=== PATIENT | male | born 1970 | race Two or more races ===

== ENCOUNTER 2020-06-21 11:17 | Inpatient (IN) | payer OTHER ==
[2020-06-21] VITALS (16 sets, daily range): BP systolic 124–162; BP diastolic 84–106
[~2020-06-21] VITALS: Ht 170.2 cm; Wt 77.1 kg
--- NOTE | 2020-06-21 10:54 | Immediate Post-Op Evaluation ---
Immediate Post-Op Evalulation Immediate Post-Op Evalulation Procedure: L5-S1 Microdiscectomy Date of Evaluation: Jun 21, 2020 Time of Evaluation: 14:17 IV Fluids: 700 LR Blood Products: 0 Estimated Blood Loss: 30 Urinary Output: 200 Blood Pressure Systolic: 142 Blood Pressure Diastolic: 83 Pulse Rate: 74 Respiratory Rate: 16 O2 Sat by Pulse Oximetry: 100 Temperature (Fahrenheit): 98.3 Pain Score (1-10): 2 Nausea: No Vomiting: No Complications 0 Patient Status: awake, reacts, patent, extubated, none Hydration Status: adequate Dru Grams Ancef IV Given Within 1 Hr of Incision: Yes Time Given: 12:16 Nito Hernandez MD Jun 21, 2020 10:54
[~2020-06-21 11:17] MED LIST: Acetaminophen (Non formulary) 100 ML IV ONE; Atropine Sulfate 0.4mg/ml inj IVP PRN; Bacitracin 50000 Units Vial ONE; DiphenhydrAMINE 50mg/ml Inj IVP PRN; Gelfoam Size TOPIC ONE; HYDROcodone/Acetamin 5/325 tab ORAL PRN; HYDROcodone/Acetamin 7.5/325 tab ORAL PRN; Hydromorphone 0.5mg/0.5ml inj IVP PRN; IBUPROFEN600 M1 ORAL; Ketorolac 30mg Inj IV PRN; LORazepam Inj 2mg/ml 1ml IV PRN; LR 1000ml 1,000 ML IVLG SCH; Labetalol 5mg/ml 20ml vial IV PRN; Meperidine 25mg/0.5ml Inj (FOR RIGORS ONLY) IV PRN; Metoclopramide 10mg/2ml Inj IVP PRN; Midazolam 2mg/2ml Inj IVP PRN; Ropivacaine 5mg/ml Vial 20ml INJ ONE; Thrombin 5000 units TOPIC ONE; Vancomycin 1gm vial IVPB ONE; ceFAZolin sod 2 GM in NS 55 ML IVPB ONE; fentaNYL 100 mcg/2 mL IV PRN; oxyCODONE HCL/Acetaminophen 5/325mg ORAL PRN
[2020-06-21] MEDS ORDERED: Lidocaine 1% MPF 10mg/ml 5ml ONE (11:26)
[2020-06-21] MEDS ORDERED: Sodium Chloride 10ml vial INJ ONE (11:26)
[2020-06-21] MEDS ORDERED: fentaNYL 100 mcg/2 mL IV ONE (11:28)
[2020-06-21] MEDS ORDERED: Lidocaine 1% Plain 30 ml INJ ONE (11:28)
--- NOTE | 2020-06-21 11:39 | Pre-Procedure Note/Attestation ---
Pre-Procedure Note/Attestation Complete Prior to Procedure Planned Procedure: not applicable Procedure Narrative: Bilateral hemilaminotomy foraminotomy and microdiscectomy of Lumbar 5-S1 Indications for Procedure Pre-Operative Diagnosis: L5 S1 herniation Attestation I attest that I discussed the nature of the procedure; its benefits; risks and complications; and alternatives (and the risks and benefits of such alternatives ), prior to the procedure, with the patient (or the patient's legal hospital sales representative). I attest that, if there was a reasonable possibility of needing a blood transfusion, the patient (or the patient's legal hospital sales representative) was given the [facility] standardized written summary, pursuant to the Sha Jennifer Blood Safety Act ([place] Health and Safety Code # 1645, as amended). I attest that I re-evaluated the patient just prior to the surgery and that there has been no change in the patient's H&P, except as documented below: Moo Keith MD Jun 21, 2020 11:39
--- NOTE | 2020-06-21 11:41 | Brief Operative Note ---
Immediate Post Operative Note Operative Note Chief Complaint: Low back pain and radiculopathy Pre-op Diagnosis: L5 S1 herniation Procedure: Bilateral hemilaminotomy foraminotomy and microdiscectomy of Lumbar 5-S1 Post-op Diagnosis: same as pre-op Findings: consistent w/pre-op dx studies Surgeon: Inna Oncology Registrar: Len Anesthesia: general Specimen: none Complications: none Condition: stable Fluids: IV Estimated Blood Loss: minimal Drains: none Implant(s) used?: No Moo Keith MD Jun 21, 2020 11:41
--- NOTE | 2020-06-21 11:42 | Brief Operative Note ---
Immediate Post Operative Note Operative Note Chief Complaint: Low back pain and radiculopathy Pre-op Diagnosis: L5 S1 herniation Procedure: Bilateral hemilaminotomy foraminotomy and microdiscectomy of Lumbar 5-S1 Post-op Diagnosis: same as pre-op Findings: consistent w/pre-op dx studies Surgeon: Inna Cage/Vault Supervisor: Len Anesthesia: general Specimen: none Complications: none Condition: stable Fluids: IVF Estimated Blood Loss: minimal Drains: none Implant(s) used?: No Moo Keith MD Jun 21, 2020 11:42
[2020-06-21] MEDS ORDERED: Metoclopramide 10mg/2ml Inj IVP PRN (11:45)
[2020-06-21] MEDS ORDERED: Morphine Sulfate 4mg/ml Inj (IV USE ONLY) IV PRN ×2 (11:45)
[2020-06-21] MEDS ORDERED: Chloraseptic Spray 20mL Bottle ORAL PRN (11:45)
[2020-06-21] MEDS ORDERED: Morphine Sulfate 2mg/ml Inj(IV/IM USE ONLY) IV PRN (11:45)
[2020-06-21] MEDS ORDERED: HYDROmorphone 1mg/ml Carpuject IVP PRN (11:45)
[2020-06-21] MEDS ORDERED: HYDROcodone/Acetamin 7.5/325 tab ORAL PRN ×2 (11:45)
[2020-06-21] MEDS ORDERED: HYDROcodone/Acetamin 5/325 tab ORAL PRN (11:45)
[2020-06-21] MEDS ORDERED: Naloxone 0.4mg/ml Inj IVP PRN (11:45)
[2020-06-21] MEDS ORDERED: Milk of Magnesia 30ml Ud ORAL PRN (11:45)
[2020-06-21] MEDS ORDERED: propofoL 1,000mg/100ml IV ONE (12:00)
[2020-06-21] MEDS ORDERED: LR 1000ml ONE (12:00)
[2020-06-21] MEDS ORDERED: NS Irrig 1000ml ONE (12:00)
[2020-06-21] MEDS ORDERED: Sterile Water Irrig 1000ml IRRIG ONE (12:00)
[2020-06-21] MEDS ORDERED: Rocuronium Bromide 50mg/5ml Inj IV ONE (12:00)
--- NOTE | 2020-06-21 12:00 | Anethesia Preoperative Eval ---
Anesthesia Pre-op PMH/ROS General Date of Evaluation: Jun 21, 2020 Time of Evaluation: 11:41 Anesthesiologist: David ASA Score: ASA 2 Mallampati Score Class I : Soft palate, uvula, fauces, pillars visible Class II: Soft palate, uvula, fauces visible Class III: Soft palate, base of uvula visible Class IV: Only hard plate visible Mallampati Classification: Class I Surgeon: Inna Diagnosis: Back Pain Surgical Procedure: L5-S1 Microdiscectomy Anesthesia History: none Family History: no anesthesia problems Allergies: Coded Allergies: No Known Allergies (Unverified , 06/20/20) Medications: see eMAR Patient NPO?: Yes Past Medical History Cardiovascular: Reports: HTN Anesthesia Pre-op Phys. Exam Physician Exam Last Vital Signs Date Time Temp Pulse Resp B/P (MAP) Pulse Ox O2 Delivery O2 Flow Rate FiO2 06/21/20 11:52 97.6 82 20 148/100 (116) 99 Constitutional: NAD Neurologic: CN 2-12 intact Cardiovascular: RRR Respiratory: CTA Gastrointestinal: S/NT/ND Airway Exam Mallampati Score: Class I MO: full ROM: full Teeth: intact Anesthesia Pre-op A/P Risk Assessment & Plan Assessment: ASA 2 Plan: GA, SED, GlideScope Status Change Before Surgery: No Pre-Antibiotics Dru Grams Ancef IV Given Within 1 Hr of Incision: Yes Time Given: 12:16 Nito Hernandez MD Jun 21, 2020 12:00
--- NOTE | 2020-06-21 12:00 | 48 Hour Post Anesthesia Eval ---
Post Anesthesia Evaluation Procedure: L5-S1 Microdiscectomy Date of Evaluation: Jun 21, 2020 Time of Evaluation: 16:22 Blood Pressure Systolic: 132 0: 78 Pulse Rate: 76 Respiratory Rate: 18 Temperature (Fahrenheit): 98.4 O2 Sat by Pulse Oximetry: 100 Airway: patent Nausea: No Vomiting: No Pain Intensity: 2 Hydration Status: adequate Cardiopulmonary Status: Stable Mental Status/LOC: patient returned to baseline Follow-up Care/Observations: 0 Post-Anesthesia Complications: 0 Follow-up care needed: N/A Nito Hernandez MD Jun 21, 2020 12:00
[2020-06-21] MEDS ORDERED: Ropivacaine 5mg/ml Vial 20ml INJ ONE (12:03)
[2020-06-21] MEDS ORDERED: Glycopyrrolate 0.2mg/ml 1ml Vial ONE (13:31)
[2020-06-21] MEDS ORDERED: Neostigmine 1mg/ml 10ml Inj ONE (13:31)
--- NOTE | 2020-06-21 14:25 | Diagnostic Imaging Report ---
INDICATION: Pain, intraoperative TECHNIQUE: Intraoperative imaging Fluoroscopy time: 6.2 seconds Total dose: 0.5595 mGym2 Total number of images: One COMPARISON: None FINDINGS: Intraoperative image demonstrates a surgical tool posterior what is presumably the L5-S1 disc. IMPRESSION: Intraoperative imaging, as described
--- NOTE | 2020-06-21 16:00 | NUR ---
NURSE NOTES: Patient received from PACU via bed to 314-1 on O2 3LNC, in stable condition. Respirations even/unlabored. Sleeping, easily awakens. Croatian speaking. IVF to RH, site asymptomatic. Urinal provided. Bilateral SCDs on. Neuros intact, skin warm, wiggles, no NT, pulses palpable, hand grasps/pedal pushes equal/strong 4/5. No complains of pain at this time. Lower back dressing, CDI, ice pack in place. Will call RT for IS. Oriented patient to medical equipment and call light for safety. All belongings reviewed, at bedside. Call light in reach, bed in lowest position, will continue to monitor.
--- NOTE | 2020-06-21 17:30 | Operative Note - Dictated ---
DATE OF OPERATION: 06/21/2020 SURGEON: Moo Keith MD BIOMEDICAL ENGINEERING PROFESSOR SURGEON: Lefty Harrington MD ANESTHESIA: General endotracheal anesthesia. PREOPERATIVE DIAGNOSES: 1. Intractable back pain. 2. Intractable leg pain. 3. Worsening radiculopathy. 4. Weakness. 5. Herniated nucleus pulposus, L5-S1 herniation. 6. Neural foraminal stenosis, L5-S1. POSTOPERATIVE DIAGNOSES: 1. Intractable back pain. 2. Intractable leg pain. 3. Worsening radiculopathy. 4. Weakness. 5. Herniated nucleus pulposus, L5-S1 herniation. 6. Neural foraminal stenosis, L5-S1. PROCEDURES PERFORMED: 1. Left-sided L5-S1 microdiscectomy. 2. L5-S1 hemilaminotomy, foraminotomy and medial facetectomy. 3. L5-S1 neural foraminotomy through a transpedicular intraforaminal approach. 4. Use of intraoperative microscope. 5. Supervision and interpretation of intraoperative fluoroscopy. 6. Supervision and interpretation of somatosensory-evoked potential and free running EMG monitoring. EBL: Less than 100 mL. COMPLICATIONS: None. INDICATIONS FOR THE PROCEDURE: The patient presents for intractable back pain and radiculopathy. The patient tried and failed a prolonged course of conservative management, including but not limited to chiropractic therapy, physical therapy, nonsteroidal anti-inflammatory drugs, medication, ice packs as well as epidural injection. Despite these therapies, the patient still developed recalcitrant pain and elected for definitive management in the form of left-sided L5-S1 microdiscectomy, L5-S1 hemilaminotomy, foraminotomy and medial facetectomy, L5-S1 neural foraminotomy through a transpedicular intraforaminal approach CONSENT: We had a long discussion with the patient regarding definitive surgical treatment options. The patient's MRI demonstrated herniated nucleus pulposus, L5-S1 herniation, neural foraminal stenosis, L5-S1 and as a result, I felt the patient would benefit from the discectomy as well as neural foraminotomy at this level. We had a long discussion with the patient regarding the risks, alternatives, and benefits of surgery. Our description of the risks included a discussion in person as well as a signed consent which detailed all pertinent risks and the procedure itself. Briefly, our discussion included but was not limited to infection, bleeding, pseudarthrosis, spinal cord injury, neurovascular injury, dural tear, CSF leak, neuropathy, paralysis, permanent weakness/drop foot, paresthesias blindness, palsy and weakness. The patient understood there may be a need for revision surgery or additional procedures. Approach related complications including dysphonia, dysphagia, blindness, permanent vocal cord and neural injury, hematoma, swallowing and breathing difficulty. Medical complications including liver, kidney, shock, and cardiopulmonary failure. Anesthesia complications including , swelling. Damage to the musculature, larynx (voice injury or loss),esophagus (throat), trachea, blood vessels and muscles (muscular sprain) and lungs (pneumothorax) during this surgical procedure. Injury to deeper structures may be temporary or permanent. The patient understood these and elected to proceed. A written and verbal consent was given. We discussed the pros and cons of all the alternatives. We discussed the uncertainties associated with the decision. Afterwards I assessed the patients understanding and explored their preferences. All questions were answered and no guarantees were given. Medical clearance was obtained prior to surgery INTRAOPERATIVE FINDINGS: L5-S1: At L5-S1, there was a moderate amount of lateral recess stenosis near the subarticular region at disk stenosis with and possibly due to soft tissue predominantly. After hemilaminotomy, a medial facetectomy was performed. I noted a nuclear fragment, which was torn through the posterior longitudinal ligament. The tear itself was approximately 10 degrees cephalad to caudad and is probed with Microsect curettes, which gave rise to the remainder of the nuclear fragment and the tear of the nuclear fragment itself. This was resected with a combination of arthroscopic 1.5 and 2 mm pituitaries. The disk space was irrigated. I should note that disk was soft and not desiccated. The disk appeared appropriately hydrated and not crumbled or bone on bone, which we would tend to see in patients who have had degenerative process in nature. Therefore, I felt this disk was traumatic in nature since that was desiccated, dried, or crumbled. DESCRIPTION OF PROCEDURE: Under the benefit of general endotracheal anesthesia and with the assistance of the entire operative team, the patient was moved from the rney onto the operative table in the prone position on a Hayden frame. The head was secured and positioned appropriately. Bilateral arms were secured with Gel pads and foam and all bony prominences were padded. The bilateral lower extremity SCD and PAYTON hose were placed for DVT prophylaxis. A surgical timeout was called which corroborated our planned procedure. Preoperative Antibiotics were administered within 30 minutes of the incision for prophylaxis. Decadron was given for preoperative steroids. Using lateral radiography, the operative levels were delineated. An incision was marked based on our interpretation of lateral radiography and afterwards the body was prepped and draped in the usual sterile manner. The family was notified that we were ready to commence surgery and were called in the waiting room hourly for updates An incision was based on our lateral fluoroscopic image to center the incision at the L5-S1 interspace. The wound was prepped and draped in the usual sterile fashion. Using a scalpel a midline incision was taken down through the skin and subcutaneous tissues until the overlying hemilamina of L5-S1 were visualized. Next, using meticulous hemostasis, hemilamotomies were dissected and retractors were placed. Using a [employer] dental, we confirmed placement at the L5-S1 interspace. We next turned our attention to our decompression. A standard hemilaminotomy foraminotomy medial facetectomy was performed bilaterally left and right in standard fashion using a Midas-Jair type AM8 drill bit, straight and angled curettage, and Kerrison 4 rongeurs until the lateral thecal sac margin and traversing nerve root was visualized. All remainders of the ligamentum flavum and lateral bony margins were resected in total with angled curettage and Kerrison 4 rongeurs until the lateral thecal sac margin and traversing nerve root was visualized and decompressed. We next turned our attention toward our L5-S1 microdiscectomy on the left side. A [place] 4 was used to gently mobilize the thecal sac medially and this was held retracted with a bayonetted nerve root retractor. It was at this point that we noted a large broad-based disc protrusion with encroachment dorsally on the thecal sac neural foraminal contents. A bayonet and nerve root retractor was then placed carefully to retract the thecal sac and a discectomy was performed using a combination of a long handled 15 blade scalpel, downgoing and straight pituitaries and downgoing curettage. Afterward the disc space was irrigated twice with 20 mL of antibiotic-impregnated saline. All loose and free-floating disc fragments were carefully resected with a narrow pituitary. Having been satisfied with our decompression after our discectomy of all neural elements, we next turned our attention to our neural foraminoplasty/foraminotomy. This was performed through a transpedicular intraforaminal approach using an access probe followed by a neuro check device, which confirmed ventral placement of our nerve root. Once we confirmed we were safe, we next turned our attention towards placement of our size 10 file under direct microscopic visualization and under lateral fluoroscopy. Using pre and post reciprocation imaging, we were able to visualize our direct decompression given the reciprocation allowed for re-creation of the neural foraminal arch at L5-S1. Afterwards, hemostasis was obtained with 60 mL of antibiotic-impregnated saline followed by FloSeal and Gelfoam. After sponge and needle count were found to be correct, we next turned our attention to closure. Closure consisted of 1-0 Vicryl in standard interrupted fashion. Zosyn was placed deep to the fascia and superficial to the fascia for antibiotic prophylaxis. Skin closure was performed with 2-0 Vicryl in interrupted fashion followed by a running Monocryl for the skin. Final dressings consisted of Dermabond for the superficial skin, Telfa and Tegaderm. The patient tolerated the procedure well. The patient was extubated after the conclusion of surgery without incident. We discussed the findings of the surgery with the family upon completion of the case. At this point the patient will be transferred to the spine floor for further observation. Moo Keith M.D. DR: VIMAL JOB#: [id number] CC:
[2020-06-21] MEDS: Docusate 100mg cap ORAL SCH (18:44)
[2020-06-21] MEDS: NS w/KCl 20mEq 1000ml 1,000 ML IV SCH (18:44)
--- NOTE | 2020-06-21 19:05 | NUR ---
HAND-OFF: Report given to Gianluca CASTILLO, rounds made, patient stable.
--- NOTE | 2020-06-21 19:50 | NUR ---
NURSE NOTES: Report received from ANNA Key. Patient in a stable condition.
[2020-06-21] MEDS: ceFAZolin sod 1 GM in D5W 55 ML IV SCH (21:05)
[2020-06-22] VITALS: BP 132/71
[2020-06-22] MEDS: NS w/KCl 20mEq 1000ml 1,000 ML IV SCH ×2 (03:06→13:00)
[2020-06-22] MEDS: ceFAZolin sod 1 GM in D5W 55 ML IV SCH ×2 (03:08→11:44)
[2020-06-22 04:00] VITALS: BP 127/69
--- NOTE | 2020-06-22 07:30 | NUR ---
NURSE NOTES: Received report from jacques CASTILLO, pt sleeping with no s/s of distress on room air, pt remains stable s/p surgery, dressing on the R lower back clean intact, pt has a R hand 22G locked , bed in low locked position, side rails upX2, call light with in reach , will continue to monitor
[2020-06-22 08:00] VITALS: BP 99/53
[2020-06-22] MEDS: Docusate 100mg cap ORAL SCH ×2 (08:15→17:16)
--- NOTE | 2020-06-22 11:39 | NUR ---
NURSE NOTES: Spoke to regarding patient and discharge patient today. Order noted and carried out.
[2020-06-22 12:00] VITALS: BP 125/77
[2020-06-22] MEDS ORDERED: NORCO 10-325 T1 EACH ORAL (12:46)
[2020-06-22] MEDS ORDERED: SOMA350 MG PO (12:47)
--- NOTE | 2020-06-22 15:54 | NUR ---
PT Note PT gerald completed, treatment initiated. Patient was instructed on HEP as follows: ankle pumps, quad sets, gluteal sets, abdominal bracing, deep breathing. He was also educated on proper back precautions and the importance of performing log rolling techniques when getting in/OOB. Patient was able to demonstrate his competency in performing these tasks through return demonstration. Addendum: 06/22/20 at 1555 by SLIM ALCANTAR PT Amended: Links added.
[2020-06-22 16:00] VITALS: BP 129/69
--- NOTE | 2020-06-22 16:20 | NUR ---
NURSE NOTES: Order for front wheel walker received and carried
--- NOTE | 2020-06-22 19:16 | NUR ---
HAND-OFF: Report given to Gianluca RN, pt stable, pt discharged and waiting for ride to home.
--- NOTE | 2020-06-22 20:00 | NUR ---
NURSE NOTES: Pt is discharged home in stable condition,vitals stable, IV line and ID band removed. Pt taken downstairs in a wheelchair to a private car driven by family.
--- NOTE | 2020-06-24 13:45 | Discharge Summary ---
Discharge Summary Hospital Course Date of Admission Jun 21, 2020 at 11:17 Date of Discharge Jun 22, 2020 at 20:00 Admitting Diagnosis Lumbar radiculopathy. Herniated nucleus pulposus Reason for Hospitalization: Elective surgery HPI Terence Ibarra is a 50 year old male who was admitted on Jun 21, 2020 at 11:17 for herniated nucleus pulposus, worsening back and leg pain, lumbar radiculopathy. Patient was admitted for elective surgery. Procedures s/p 06/21/[address] Keith 1. Left-sided L5-S1 microdiscectomy. 2. L5-S1 hemilaminotomy, foraminotomy and medial facetectomy. 3. L5-S1 neural foraminotomy through a transpedicular intraforaminal approach. 4. Use of intraoperative microscope. 5. Supervision and interpretation of intraoperative fluoroscopy. 6. Supervision and interpretation of somatosensory-evoked potential and free running EMG monitoring. Hospital Course status post surgery course of recovery uneventful initially IV fluids s/p perioperative antibiotic and steroid neurovascular status closely monitored, remained stable incision clean ,dry and intact pain management was addressed , and pain was controlled with current regimen remained hemodynamically stable ambulated with PT fall precautions maintained; safe for ambulation DVT prophylaxis provided use of incentive spirometry was encouraged while in the bed tolerated diet , IV fluids discontinued antiemetics were on board as needed voided freely bowel regimen instituted patient was stable for discharge discharge instructions provided follow up with surgeon in the office as advised FINAL DIAGNOSES 1. Intractable back pain. 2. Intractable leg pain. 3. Worsening radiculopathy. 4. Weakness. 5. Herniated nucleus pulposus, L5-S1 herniation. 6. Neural foraminal stenosis, L5-S1. 7. s/p L5-S1 Microdiscectomy Discharge Medications Continued Medications: Carisoprodol* (Soma*) 350 Mg Tablet 350 MG PO Q12HR for post op, #90 TAB (This prescription has been renewed) Hydrocodone Bit/Acetaminophen 10-325* ([place] 10-325*) 1 Each Tablet 1 TAB ORAL Q8HR PRN for For Pain, #90 TAB 0 Refills (This prescription has been renewed) PRN PAIN Discharge Condition Upon Discharge: stable Discharge Vital Signs Last Vital Signs Date Time Temp Pulse Resp B/P (MAP) Pulse Ox O2 Delivery O2 Flow Rate FiO2 06/22/20 16:00 99.0 61 19 129/69 (89) 100 06/22/20 09:00 Room Air 06/21/20 15:55 3 Discharge Disposition Patient was discharged home Discharge Instructions Discharge Instructions Special Instructions I have been assigned to complete a D/C Summary on this account. I was not involved in the patient management Autumn Pena NP Jun 24, 2020 13:45
== END 2020-06-22 20:00 | disposition home or self-care (01) | DRG 520 ==
LOC: SDSOVERFLO 11:17 → 3E 16:53
PROC: 01NB0ZZ Release Lumbar Nerve, Open Approach (ICD-10-PCS; principal; 2020-06-21 11:30)
PROC: 0SB20ZZ Excision of Lumbar Vertebral Disc, Open Approach (ICD-10-PCS; principal; 2020-06-21 11:30)
DX: M51.16 Intervertebral disc disorders with radiculopathy, lumbar region (principal); M48.061 Spinal stenosis, lumbar region without neurogenic claudication; V19.88XS Pedal cyclist (driver) (passenger) injured in other specified transport accidents, sequela
CPT/HCPCS: 36415; 72020; 76000; 86850; 86900; 86901; 87081; J2180; J2405; J2710; J2795